=== PATIENT | female | born 1980 | race Caucasian/White ===

== ENCOUNTER 2025-01-31 06:32 | Emergency (ER) | payer BC, OTHER ==
[~2025-01-31] VITALS: Ht 170.2 cm; Wt 120.0 kg
--- NOTE | 2025-01-31 06:58 | ED.PDOC ---
HPI (NEURO) HPI Comments 44-year-old female here with 11 days of headache. She has a known history of migraines for which she previously took something but does not know the name. But has not taken in some time. She states however her migraine normally she has a prisms in her eyes and arm numbness which did not have this time. She did have some numbness tingling of the arm that started around day 8 but did not actually resort to arm numbness. Patient had some numbness in early stages of the headache. She states she has been taking 800 mg of ibuprofen twice a day for proximally 11 days and added Tylenol in recently for days but headache has not improved. She reports the headache has been a constant 5/10. No change with medications. She went to urgent care yesterday and blood pressure was found to be 172/86. She does not know what her normal blood pressure is. Denies any recent cough cold runny nose fever or chills. She reports mild right upper back pain but states she was lifting something heavy a few days ago. Denies any neck pain. Patient overall feels well except for the headache. Patient denies being the worst headache of her life. Patient went to urgent care last night, states they did not do anything. No medications were given last night. Chief Complaint: Headache Time Seen by MD: 06:37 Mode of Arrival: Ambulatory Past Medical History Past Medical History (Other): bipolar, migraines Surgical History: Cholecystectomy Family History Family History: Reviewed,noncontributory to illness Social History Smoker: Non-Smoker Alcohol: Denies ETOH Use Drugs: Denies Drug Use All Other Systems: Reviewed and Negative Physical Exam General Appearance: No Apparent Distress, Normal HEENT: Normal ENT Inspection, Pharynx Normal, TMs Normal Neck: Full Range of Motion, Non-Tender, Normal, Normal Inspection Respiratory: Chest Non-Tender, Lungs Clear, No Accessory Muscle Use, No Respiratory Distress, Normal Breath Sounds Cardiovascular: No Edema, No JVD, No Murmur, No Gallop, Normal Peripheral Pulses, Regular Rate/Rhythm Breast Exam: Deferred Gastrointestinal: No Organomegaly, Non Tender, No Pulsatile Mass, Normal Bowel Sounds, Soft Genitalia: Deferred Pelvic: Deferred Rectal: Deferred Extremities: No calf tenderness, Normal capillary refill, Normal inspection, Normal range of motion, Non-tender, No pedal edema, Other (Mild tenderness to the right upper scapula. No deformity) Musculoskeletal : Apperance: Normal Neurologic: Alert, house decorator II-XII nml as Tested, No Motor Deficits, Normal Affect, Normal Mood, No Sensory Deficits Cerebellar Function: Normal Reflexes: Normal Skin: Dry, Normal Color, Warm Lymphatic: No Adenopathy Was a procedure done? Was a procedure done?: No Differential Diagnosis (SZ) Headache: Migraine, Closed Head Injury, Subarachnoid Hemorrhage, Subdural Hemor rhage, Meningitis X-Ray, Labs, Meds, VS Vital Signs Date Time Temp Pulse Resp B/P (MAP) Pulse Ox O2 Delivery O2 Flow Rate FiO2 01/31/25 08:00 72 17 97 Room Air* 0 21 01/31/25 08:00 98.0 72 17 167/72 (103) 97 98.0 01/31/25 06:40 98.2 74 18 131/55 (80) 96 98.2 Current Medications Medications (Trade) Dose Ordered Sig/Stu Route Start Time Stop Time Status Last Admin Diphenhydramine HCl (Benadryl Injection) 50 mg ONCE ONCE IV 01/31/25 07:00 01/31/25 07:01 DC 01/31/25 08:06 Metoclopramide HCl (Reglan Injection) 10 mg ONCE ONCE IV 01/31/25 07:00 01/31/25 07:01 DC 01/31/25 08:06 Ketorolac Tromethamine (Toradol Injection) 30 mg ONCE ONCE IV 01/31/25 07:00 01/31/25 07:01 DC 01/31/25 08:06 44-year-old female presents here with 5/10 headache that has been persistent for the last 11 days. Considered meningitis does all his subarachnoid hemorrhage however patient denies being the worst headache of her life. Blood pressure was normal in the ER at 131/55. Suspect that is not the cause of her current headache. I have given her Reglan Benadryl and Toradol in the ER and clinically she is feeling much better. She rates her pain as 1/10 at this time. Suspect likely migraine. At this time I have discharged her home. Advised to follow up with the PCP in 2-3 days and return to the ER if symptoms worsen or persist. Patient agreeable and understands. Time of 1ST Reevaluation: 07:51 Reevaluation 1ST: Improved Time of 2ND Reevaluation: 09:51 Reevaluation 2ND: Improved Patient Education/Counseling: Diagnosis, Treatment Family Education/Counseling: No Family Present Departure 1 Departure Time of Disposition: 09:51 Impression: Primary Impression: Migraine headache Qualified Codes: G43.919 - Migraine, unspecified, intractable, without status migrainosus Disposition: 01 HOME / SELF CARE / HOMELESS Condition: Stable Additional Instructions: Follow up with the primary care physician in 2-3 days. Return to the ER if symptoms worsen or persist. Discharged With: Self Critical Care Note Critical Care Time?: No Stability Stability form required: No Heart Score Heart Score: Heart Score Response (Comments) Value History N/A 0 EKG N/A 0 Age N/A 0 Risk Factors N/A 0 Troponin N/A 0 Total 0 RASHAAD OHARA MD Jan 31, 2025 06:58
[2025-01-31 08:00] VITALS: PULSE 72; RESP 17; O2SAT 97
[2025-01-31] MEDS: METOCLOPRAMIDE HCL 5MG/ml INJ 2ml VIAL IV ONE (08:06)
[2025-01-31] MEDS: KETOROLAC TROMETH 30 MG/ML 1ML VIAL IV ONE (08:06)
[2025-01-31] MEDS: diphenhdrAMINE HCL 50 MG/1 ML VL IV ONE (08:06)
[2025-01-31 10:14] VITALS: BP 122/77; PULSE 71; RESP 14; TEMP 97.9; O2SAT 98
== END 2025-01-31 10:15 | disposition home or self-care (01) ==
LOC: ER 06:32
DX: G43.919 Migraine, unspecified, intractable, without status migrainosus (principal); Z90.49 Acquired absence of other specified parts of digestive tract
CPT/HCPCS: 96374; 96375; 99284; J1200; J1885; J2765